=== PATIENT | female | born 1965 | race Caucasian/White ===

== ENCOUNTER 2016-05-17 07:56 | Day surgery (SDC) | payer OTHER ==
[2016-05-17 08:14] VITALS: TEMP 97.8
[2016-05-17] MEDS ORDERED: LACTATED RINGERS 1,000 ML IV ONE ×2 (08:28→09:10)
[2016-05-17] MEDS ORDERED: LIDOCAINE 1% 20 ML VIAL (10MG/ML) FOR IV START INTRADERMA ONE (08:31)
[2016-05-17] MEDS ORDERED: PROPOFOL 10 MG/ML 20 ML VIAL IV ONE (09:10)
[2016-05-17] MEDS ORDERED: fentaNYL (PF) 50 MCG/ML 2 ML AMP ONE (09:10)
[2016-05-17] MEDS ORDERED: LIDOCAINE 1% INJ 10MG/ML (20 ML MDV) ONE (09:10)
[2016-05-17] MEDS ORDERED: MIDAZOLAM 2 MG/2 ML VIAL ONE (09:10)
--- NOTE | 2016-05-17 09:35 | P.GSHP ---
History of Present Illness H&P Date: 05/17/16 Chief Complaint: Epigastric abdominal pain This is a 50-year-old female who presents today for EGD. She's had complaints of epigastric dull pain. She. Has a history of dyspepsia. - Constitutional Constitutional: Reports as per HPI Past Medical History Past Medical History: Fibromyalgia, GERD/Reflux, Liver Disease, Rheumatoid Arthritis (RA) Additional Past Medical History / Comment(s): djd, carpal tunnel, tendonitis, diverticulosis, heptitis C History of Any Multi-Drug Resistant Organisms: None Reported Past Surgical History: Tubal Ligation Past Anesthesia/Blood Transfusion Reactions: No Reported Reaction Past Psychological History: ADD/ADHD, Anxiety, PTSD Additional Psychological History / Comment(s): "very high anxiety", borderline personality disorder Smoking Status: Current every day smoker Past Alcohol Use History: None Reported Additional Past Alcohol Use History / Comment(s): smokes 1PPD, for 20 yrs Past Drug Use History: None Reported - Past Family History Mother Family Medical History: No Reported History Medications and Allergies Home Medications Medication Instructions Recorded Confirmed Type Hydrochlorothiazide 25 mg PO 05/17/16 History OXcarbazepine [Trileptal] 150 mg PO 05/17/16 History Omeprazole [PriLOSEC] 20 mg PO AC-BRKFST 05/17/16 05/17/16 History Potassium Chloride [Klor-Con 10] 10 meq PO 05/17/16 History buPROPion HCL [Wellbutrin SR] 100 mg PO 05/17/16 History Allergies Allergy/AdvReac Type Severity Reaction Status Date / Time No Known Allergies Allergy Verified 05/17/16 08:05 Surgical - Exam Vital Signs Temp Pulse Resp BP Pulse Ox 97.8 F 96 18 137/85 97 05/17/16 08:13 05/17/16 08:13 05/17/16 08:13 05/17/16 08:13 05/17/16 08:13 - General well developed, no distress - Eyes PERRL - ENT normal pinna - Neck no masses - Respiratory normal expansion - Cardiovascular Rhythm: regular - Abdomen Abdomen: soft, non tender Assessment and Plan Plan: Epigastric dull pain. We'll perform EGD.
--- NOTE | 2016-05-17 09:43 | P.OP ---
Date of Procedure: 05/17/16 Preoperative Diagnosis: Epigastric abdominal pain Postoperative Diagnosis: Mild duodenitis Mild gastritis No evidence of hiatal hernia No evidence of esophagitis Procedure(s) Performed: EGD Anesthesia: MAC Surgeon: Soto Zavala Pathology: other (Antrum, esophagus) Condition: stable Disposition: PACU Description of Procedure: The patient's placed on the endoscopy table in the lateral position. She received IV sedation. The gastroscope some placed oropharynx passed in the esophagus and into the stomach. The scope was then placed through the pylorus. The first and second portion of the duodenumAppeared minimally inflamed and a biopsies performed. Scope was then brought back into the antrum and this was mildly inflamed and another biopsy was performed. The scope was retroflexed and remainder of the stomach appeared normal. There was no significant hiatal hernia. The GE junction was at 40 cm. The distal esophagus appeared normal. The proximal esophagus appeared normal. Scope was withdrawn for patient. Due to the patient's symptoms of epigastric abdominal pain she was scheduled for a HIDA scan.
[2016-05-17 09:48] VITALS: RESP 16
[2016-05-17 10:08] VITALS: BP 120/67
[2016-05-17 10:14] VITALS: PULSE 81
--- NOTE | 2016-05-17 13:30 | NM ---
EXAMINATION TYPE: NM hepatobiliary w EF DATE OF EXAM: 05/17/2016 1:23 PM COMPARISON: NONE HISTORY: Pain TECHNIQUE: After the intravenous administration of 5.1 mCi Tc 99m Mebrofenin hepatobiliary scintigrap hy is performed. Immediate images post injection. FINDINGS: There is satisfactory initial accumulation of tracer by the liver. The gallbladder is visualized wit hin 14 minutes. The small bowel activity is noted within 16 minutes. At one hour 8 ounces of oral e nsure plus is given to mimic CCK and gallbladder ejection fraction is calculated at 85 %. IMPRESSION: 1. Mildly elevated gallbladder ejection fraction may reflect hypercontractile state.
== END 2016-05-17 10:14 | disposition home or self-care (01) ==
LOC: ORWHC2ENDO 07:56
PROVIDERS: ATTEND Surgery
DX: K29.80 Duodenitis without bleeding (principal); K29.50 Unspecified chronic gastritis without bleeding; K21.9 Gastro-esophageal reflux disease without esophagitis; M79.7 Fibromyalgia; M06.9 Rheumatoid arthritis, unspecified; F41.9 Anxiety disorder, unspecified; F43.10 Post-traumatic stress disorder, unspecified; F90.9 Attention-deficit hyperactivity disorder, unspecified type; G89.4 Chronic pain syndrome; F17.200 Nicotine dependence, unspecified, uncomplicated; Z79.891 Long term (current) use of opiate analgesic; Z79.899 Other long term (current) drug therapy
CPT/HCPCS: 88305; 88342; 78226; 43239; A9537; J2250; J2001; J3010; J2704; 88341

== ENCOUNTER 2016-06-01 13:58 | Emergency (ER) | payer OTHER ==
[2016-06-01 14:08] VITALS: RESP 18
[2016-06-01] MEDS ORDERED: SODIUM CHLORIDE 0.9% 500 ML IV STA (15:06)
[2016-06-01] MEDS ORDERED: ONDANSETRON 4 MG/2 ML VIAL IVP STA (15:06)
[2016-06-01] MEDS ORDERED: KETOROLAC 30 MG/ML 1 ML VIAL IVP STA (15:06)
[2016-06-01 16:01] VITALS: TEMP 97.6
[2016-06-01 16:03] LABS: Basophils # (A) 0.1 k/uL (0-0.2); Basophils % (A) 1 %; CH 30.8; CHCM 34.3; Eosinophils # (A) 0.4 k/uL (0-0.7); Eosinophils % (A) 5 %; HCT 37.2 % (34.0-46.0); HDW 2.62; HGB 12.5 gm/dL (11.4-16.0); Luc # (Auto) 0.31; Luc % (Auto) 4; Lymphocytes # (A) 2.3 k/uL (1.0-4.8); Lymphocytes % (A) 30 %; MCH 30.5 pg (25.0-35.0); MCHC 33.7 g/dL (31.0-37.0); MCV 90.4 fL (80.0-100.0); Mean Platelet Volume 7.8; Monocytes # (A) 0.5 k/uL (0-1.0); Monocytes % (A) 6 %; Neutrophils % (A) 53 %; RBC 4.11 m/uL (3.80-5.40); RDW 13.6 % (11.5-15.5); WBC 7.5 k/uL (3.8-10.6); WBC (Perox) 7.85
[2016-06-01 16:18] LABS: ALT 18 U/L (9-52); AST 23 U/L (14-36); Alkaline Phosphatase 68 U/L (38-126); Anion Gap 10 mmol/L; Blood Urea Nitrogen 16 mg/dL (7-17); Calcium 9.6 mg/dL (8.4-10.2); Carbon Dioxide 26 mmol/L (22-30); Chloride 107 mmol/L (98-107); Glucose 83 mg/dL (74-99); Non-African American GFR(MDRD) >60 (>60 ml/min/1.73 sqM); Potassium 3.9 mmol/L (3.5-5.1); Sodium 143 mmol/L (137-145); Total Bilirubin 0.5 mg/dL (0.2-1.3); Total Protein 7.3 g/dL (6.3-8.2)
--- NOTE | 2016-06-01 16:25 | ED ---
General Adult HPI - General Chief complaint: Abdominal Pain Stated complaint: abd pain Source: patient Mode of arrival: ambulatory Limitations: no limitations - History of Present Illness Initial comments: 50-year-old female presented for pain control. She states that she is scheduled to have a cholecystectomy with Dr. Zavala this Tuesday but she has not been given any pain control. She states that she is continued to have pain despite being evaluated and found to have a gallbladder requiring surgery. She presents to the ED with her father who was the initial patient. Upon arrival she was eating food and then stated that she started to have worsening pain. While trying to obtain the patient's HPI she continually interrupted stating all she needed was IV pain medications and that all these questions were necessary. As she is being informed that these were important for her workup she stated that she was being treated as though she was lying and that all she needed was pain control. Despite the patient being scheduled for cholecystectomy on Tuesday this behavior is concerning for drug-seeking activity. - Related Data Home Medications Medication Instructions Recorded Confirmed Potassium Chloride [Klor-Con 10] 10 meq PO DAILY 05/17/16 06/01/16 Hydrochlorothiazide [Hydrodiuril] 25 mg PO DAILY 06/01/16 06/01/16 Omeprazole 40 mg PO DAILY 06/01/16 06/01/16 busPIRone HCl [Buspar] 5 mg PO BID 06/01/16 06/01/16 Previous Rx's Medication Instructions Recorded Acetaminophen-Codeine 300-30mg 1 tab PO Q6H PRN #14 tablet 06/01/16 [Tylenol #3] Ondansetron Odt [Zofran Odt] 4 mg PO Q8HR PRN #7 tab 06/01/16 Allergies Allergy/AdvReac Type Severity Reaction Status Date / Time No Known Allergies Allergy Verified 06/01/16 14:33 Review of Systems ROS Statement: Those systems with pertinent positive or pertinent negative responses have been documented in the HPI. ROS Other: All systems not noted in ROS Statement are negative. Constitutional: Denies: fever, chills Eyes: Denies: eye pain, eye discharge ENT: Denies: ear pain, throat pain Respiratory: Denies: cough, dyspnea Cardiovascular: Denies: chest pain, palpitations, dyspnea on exertion, orthopnea Endocrine: Denies: fatigue, polydipsia Gastrointestinal: Reports: abdominal pain, nausea. Denies: vomiting Genitourinary: Denies: urgency, dysuria Musculoskeletal: Denies: back pain, arthralgia, myalgia Skin: Denies: rash, lesions Neurological: Denies: headache, weakness Psychiatric: Denies: anxiety, depression Hematological/Lymphatic: Denies: easy bleeding, easy bruising Past Medical History Past Medical History: Fibromyalgia, GERD/Reflux, Liver Disease, Rheumatoid Arthritis (RA) Additional Past Medical History / Comment(s): djd, carpal tunnel, tendonitis, diverticulosis, heptitis C, History of Any Multi-Drug Resistant Organisms: None Reported Past Surgical History: Tubal Ligation Additional Past Surgical History / Comment(s): colonoscopy and egd, PAIN CLINIC PROCEDURES Past Anesthesia/Blood Transfusion Reactions: No Reported Reaction Past Psychological History: ADD/ADHD, Anxiety, PTSD Additional Psychological History / Comment(s): "very high anxiety", borderline personality disorder Smoking Status: Current every day smoker Past Alcohol Use History: None Reported Additional Past Alcohol Use History / Comment(s): smokes 1PPD, for 20 yrs Past Drug Use History: None Reported - Past Family History Mother Family Medical History: No Reported History General Exam Limitations: no limitations General appearance: alert, in no apparent distress Head exam: Present: atraumatic, normocephalic, normal inspection Eye exam: Present: normal appearance, PERRL, EOMI. Absent: scleral icterus, conjunctival injection, periorbital swelling ENT exam: Present: normal exam, mucous membranes moist Neck exam: Present: normal inspection. Absent: tenderness, meningismus, lymphadenopathy Respiratory exam: Present: normal lung sounds bilaterally. Absent: respiratory distress, wheezes, rales, rhonchi, stridor Cardiovascular Exam: Present: regular rate, normal rhythm, normal heart sounds. Absent: systolic murmur, diastolic murmur, rubs, gallop, clicks GI/Abdominal exam: Present: soft, tenderness, normal bowel sounds, other ( Epigastric abdominal pain that is distractible.). Absent: distended, guarding, rebound, rigid Rectal exam: Present: deferred Extremities exam: Present: normal inspection, full ROM, normal capillary refill. Absent: tenderness, pedal edema, joint swelling, calf tenderness Back exam: Present: normal inspection Neurological exam: Present: alert, oriented X3, CN II-XII intact Psychiatric exam: Present: agitated Skin exam: Present: warm, dry, intact, normal color. Absent: rash Course Vital Signs 06/01/16 06/01/16 06/01/16 14:05 15:57 16:32 Temperature 98.3 F 97.6 F Pulse Rate 98 76 75 Respiratory 18 18 18 Rate Blood Pressure 140/89 153/95 126/66 O2 Sat by Pulse 100 100 100 Oximetry EKG Findings - EKG Comments: EKG Findings:: Normal sinus rhythm with first-degree AV block and a ventricular rate of 76, NIKOLAS 214, QRS 90, QT/QTC 388/436. Medical Decision Making - Medical Decision Making 50-year-old female presenting for pain control. She is scheduled for a cholecystectomy with Dr. Zavala on Tuesday but she states she was never given any prescriptions for her pain management. On physical examination the patient has distractible epigastric abdominal pain and the abdomen is soft without any peritoneal signs of guarding rigidity or rebound. Patient exhibits drug-seeking behavior stating that a physical exam and lab workup is unnecessary as all she needs is pain control. Further questioning and attempts to examine the patient resulted in the patient accusing me of treating her as though she is lying and that she is upset that we won't just give her IV pain medication. She was informed that this was not the case and that an exam and appropriate workup is necessary for any sort of treatment. Toradol and Zofran were ordered for the patient and his labs are coming back she was reevaluated when she stated that if she would not be given any narcotic pain medications she would prefer to be discharged. She was informed that her labs revealed no significant abnormalities and that she could be safely discharged at this time. Dr. Zavala was called and agreed with plan not to provide narcotic pain medications. The patient was advised to follow-up with her primary care physician or surgeon and return to this facility if her symptoms should worsen or persist. She acknowledged an understanding of this information and agreed with this plan of care. She is further given instructions for low-fat diet. - Lab Data Result diagrams: 06/01/16 15:53 06/01/16 15:53 Lab Results 06/01/16 06/01/16 Range/Units 15:53 15:53 WBC 7.5 (3.8-10.6) k/uL RBC 4.11 (3.80-5.40) m/uL Hgb 12.5 (11.4-16.0) gm/dL Hct 37.2 (34.0-46.0) % MCV 90.4 (80.0-100.0) fL MCH 30.5 (25.0-35.0) pg MCHC 33.7 (31.0-37.0) g/dL RDW 13.6 (11.5-15.5) % Plt Count 310 (150-450) k/uL Neutrophils % 53 % Lymphocytes % 30 % Monocytes % 6 % Eosinophils % 5 % Basophils % 1 % Neutrophils # 4.0 (1.3-7.7) k/uL Lymphocytes # 2.3 (1.0-4.8) k/uL Monocytes # 0.5 (0-1.0) k/uL Eosinophils # 0.4 (0-0.7) k/uL Basophils # 0.1 (0-0.2) k/uL Sodium 143 (137-145) mmol/L Potassium 3.9 (3.5-5.1) mmol/L Chloride 107 (98-107) mmol/L Carbon Dioxide 26 (22-30) mmol/L Anion Gap 10 mmol/L BUN 16 (7-17) mg/dL Creatinine 0.90 (0.52-1.04) mg/dL Est GFR (MDRD) Af Amer >60 (>60 ml/min/1.73 sqM) Est GFR (MDRD) Non-Af >60 (>60 ml/min/1.73 sqM) Glucose 83 (74-99) mg/dL Calcium 9.6 (8.4-10.2) mg/dL Total Bilirubin 0.5 (0.2-1.3) mg/dL AST 23 (14-36) U/L ALT 18 (9-52) U/L Alkaline Phosphatase 68 (38-126) U/L Total Protein 7.3 (6.3-8.2) g/dL Albumin 4.2 (3.5-5.0) g/dL Lipase 168 (23-300) U/L Disposition Clinical Impression: Abdominal pain, Nausea Disposition: HOME SELF-CARE Condition: Stable Instructions: Abdominal Pain (ED), Low Fat Diet (ED), Biliary Colic (ED) Additional Instructions: Please use medication as discussed. Please follow up with family doctor if symptoms have not improved over the next two days. Please return to the emergency room if your symptoms increase or worsen or for any other concerns. Prescriptions: Acetaminophen-Codeine 300-30mg [Tylenol #3] 1 tab PO Q6H PRN #14 tablet PRN Reason: Pain Ondansetron Odt [Zofran Odt] 4 mg PO Q8HR PRN #7 tab PRN Reason: Nausea Referrals: Adelia Iqbal DO [Primary Care Provider] - 1-2 days Time of Disposition: 16:25
[2016-06-01 16:32] VITALS: BP 126/66; PULSE 75
[2016-06-01] MEDS ORDERED: RX INFO: IV CONTRAST WAS GIVEN 1 EACH MISC MISCELLANE PRN (16:33)
== END 2016-06-01 16:46 | disposition home or self-care (01) ==
LOC: EC 13:58
DX: R10.13 Epigastric pain (principal); R11.0 Nausea; K21.9 Gastro-esophageal reflux disease without esophagitis; F41.9 Anxiety disorder, unspecified; F90.9 Attention-deficit hyperactivity disorder, unspecified type; F17.200 Nicotine dependence, unspecified, uncomplicated; Z79.899 Other long term (current) drug therapy
CPT/HCPCS: 99284 ×2; 96374 ×2; 36415; 93005; 80053; 83690; 85025; J2405

== ENCOUNTER 2016-06-04 09:04 | Day surgery (SDC) | payer OTHER ==
[2016-06-01 13:35] VITALS: BMI 26.6
--- NOTE | 2016-06-04 08:01 | P.GSHP ---
History of Present Illness H&P Date: 06/04/16 Chief Complaint: Right upper quadrant pain This is a 50-year-old female referred from Dr. Adelia Iqbal. Patient has had complaints of right upper quadrant pain. Her recent HIDA scan shows an elevated ejection fraction 85% consistent with biliary hyperkinesia and chronic cholecystitis. - Constitutional Constitutional: Reports as per HPI Past Medical History Past Medical History: Fibromyalgia, GERD/Reflux, Liver Disease, Rheumatoid Arthritis (RA) Additional Past Medical History / Comment(s): djd, carpal tunnel, tendonitis, diverticulosis, heptitis C, History of Any Multi-Drug Resistant Organisms: None Reported Past Surgical History: Tubal Ligation Additional Past Surgical History / Comment(s): colonoscopy and egd, PAIN CLINIC PROCEDURES Past Anesthesia/Blood Transfusion Reactions: No Reported Reaction Past Psychological History: ADD/ADHD, Anxiety, PTSD Additional Psychological History / Comment(s): "very high anxiety", borderline personality disorder Smoking Status: Current every day smoker Past Alcohol Use History: None Reported Additional Past Alcohol Use History / Comment(s): smokes 1PPD, for 20 yrs Past Drug Use History: None Reported - Past Family History Mother Family Medical History: No Reported History Medications and Allergies Home Medications Medication Instructions Recorded Confirmed Type Potassium Chloride [Klor-Con 10] 10 meq PO DAILY 05/17/16 06/01/16 History Hydrochlorothiazide [Hydrodiuril] 25 mg PO DAILY 06/01/16 06/01/16 History Omeprazole 40 mg PO DAILY 06/01/16 06/01/16 History busPIRone HCl [Buspar] 5 mg PO BID 06/01/16 06/01/16 History Allergies Allergy/AdvReac Type Severity Reaction Status Date / Time No Known Allergies Allergy Verified 06/01/16 14:33 Surgical - Exam - General well developed, no distress - Eyes PERRL - ENT normal pinna - Neck no masses - Respiratory normal expansion - Cardiovascular Rhythm: regular - Abdomen Abdomen: soft, non tender Assessment and Plan Plan: Chronic cholecystitis Right quadrant pain We'll perform laparoscopic cholecystectomy.
[~2016-06-04 09:04] MED LIST: DEXAMETHASONE SOD PHOSPHATE 10 MG/ML 1 ML VIAL IV ONE; HEPARIN SODIUM,PORCINE 5,000 UNIT/ML 1 ML VIAL SQ ONE; LACTATED RINGERS 1,000 ML IV SCH; MIDAZOLAM 2 MG/2 ML VIAL IV PRN; ONDANSETRON 4 MG/2 ML VIAL IVP ONE; SCOPOLAMINE 1.5MG/72HR PATCH TRANSDERM ONE; ceFAZolin 2 GM in SODIUM CHLORIDE 0.9% 100 ML IVPB ONE
[2016-06-04] MEDS ORDERED: LIDOCAINE 1% 20 ML VIAL (10MG/ML) FOR IV START INTRADERMA ONE (09:42)
[2016-06-04] MEDS ORDERED: ROCURONIUM BROMIDE 10 MG/ML 10 ML VIAL IV ONE (10:24)
[2016-06-04] MEDS ORDERED: fentaNYL (PF) 50 MCG/ML 2 ML AMP ONE (10:24)
[2016-06-04] MEDS ORDERED: LIDOCAINE 1% INJ 10MG/ML (20 ML MDV) ONE (10:24)
[2016-06-04] MEDS ORDERED: GLYCOPYRROLATE 0.2 MG/ML 2 ML VIAL ONE (10:24)
[2016-06-04] MEDS ORDERED: PROPOFOL 10 MG/ML 20 ML VIAL IV ONE (10:24)
[2016-06-04] MEDS ORDERED: NEOSTIGMINE 1 MG/ML 10 ML VIAL ONE (10:24)
[2016-06-04] MEDS ORDERED: MIDAZOLAM 2 MG/2 ML VIAL ONE (10:24)
[2016-06-04] MEDS ORDERED: SUCCINYLCHOLINE CHLORIDE 100 MG/5 ML SYR IV ONE (10:24)
[2016-06-04] MEDS ORDERED: BUPIVACAIN-EPI 0.25%-1:200,000 30 ML VIAL SQ ONE (10:48)
--- NOTE | 2016-06-04 11:10 | P.OP ---
Date of Procedure: 06/04/16 Preoperative Diagnosis: Cholecystitis Postoperative Diagnosis: Cholecystitis Procedure(s) Performed: Laparoscopic cholecystectomy Anesthesia: RYAN Surgeon: Soto Zavala Estimated Blood Loss (ml): 5 Pathology: other (Gallbladder) Condition: stable Disposition: PACU Description of Procedure: The patient was placed on the operating table. The patient received a general endotracheal tube anesthesia. The patients abdomen was prepped and draped in the usual sterile fashion. Through an infraumbilical stab incision, the fascia of the anterior abdominal wall was grasped with a pair of Kochers and then the Veress needle was placed in the peritoneal cavity. Position of the Veress needle was confirmed with positive drop test. The abdomen was then insufflated. After adequate insufflation, the 10 mm trocar was placed in the peritoneal cavity. Following this the laparoscope was placed in the peritoneal cavity. The patient was placed in the head-up, right side up position and then a 5 mm trocar was placed in the right lateral and right subcostal position under direct visualization. A 8 mm trocar was placed in the epigastric position. The gallbladder was grasped in the fundus and infundibulum. Traction on the gallbladder was placed in the lateral and the cephalad positions. The triangle of Calot was visualized.. The cystic duct was bluntly dissected until the union of the cystic duct and common bile duct was seen. The cystic duct was then divided and sealed with the Harmonic scissors. A PDS Endoloop was then placed throughout the cystic duct stump. The cystic artery divided and sealed with the Harmonic scissors. The gallbladder was then removed from the liver bed using Harmonic scissors. The gallbladder was then extracted through the epigastric port site. Operative field was checked for any bleeding spots and Harmonic scissors was used to coagulate the liver bed. The abdomen was irrigated. The trocars were removed. The skin was closed using interrupted 3-0 Vicryl suture. Dermabond dressing were applied. The patient tolerated the procedure well.
[2016-06-04 11:23] VITALS: TEMP 97.8
[2016-06-04] MEDS: HYDROmorphone 1 MG/ML 1 ML SYRINGE IVP PRN ×3 (11:26→11:48)
[2016-06-04 11:32] VITALS: RESP 16
[2016-06-04] MEDS ORDERED: LACTATED RINGERS 1,000 ML IV ONE (12:12)
[2016-06-04] MEDS ORDERED: HYDROcodone/APAP 7.5-325MG 1 EACH TAB PO ONE (12:29)
[2016-06-04 13:14] VITALS: BP 122/81; PULSE 77
== END 2016-06-04 13:15 | disposition home or self-care (01) ==
LOC: ORWHC2ENDO 09:04
PROVIDERS: ATTEND Surgery
DX: K81.1 Chronic cholecystitis (principal); K21.9 Gastro-esophageal reflux disease without esophagitis; K74.60 Unspecified cirrhosis of liver; F41.9 Anxiety disorder, unspecified; F60.3 Borderline personality disorder; F90.9 Attention-deficit hyperactivity disorder, unspecified type; F43.10 Post-traumatic stress disorder, unspecified; M79.7 Fibromyalgia; M06.9 Rheumatoid arthritis, unspecified; F17.200 Nicotine dependence, unspecified, uncomplicated; Z79.891 Long term (current) use of opiate analgesic; Z79.899 Other long term (current) drug therapy
CPT/HCPCS: 88304; 47562; J2250; J1644; J1100; J2710; J0690; J2405; J2001; J3010; J1170; J0330; J2704

== ENCOUNTER → 2016-07-16 | Outpatient (CLI) | payer OTHER ==
[2016-07-16 16:03] LABS: Basophils % (A) 0 %; CH 30.4; CHCM 33.4; Eosinophils # (A) 0.2 k/uL (0-0.7); Eosinophils % (A) 4 %; HDW 2.58; HGB 13.1 gm/dL (11.4-16.0); Luc # (Auto) 0.18; Luc % (Auto) 3; Lymphocytes % (A) 31 %; MCH 29.9 pg (25.0-35.0); MCHC 32.8 g/dL (31.0-37.0); MCV 91.2 fL (80.0-100.0); Mean Platelet Volume 6.8; Monocytes # (A) 0.4 k/uL (0-1.0); Monocytes % (A) 6 %; Neutrophils # (A) 3.7 k/uL (1.3-7.7); Neutrophils % (A) 57 %; RBC 4.38 m/uL (3.80-5.40); RDW 13.6 % (11.5-15.5); WBC 6.5 k/uL (3.8-10.6)
[2016-07-16 16:07] LABS: ALT 25 U/L (9-52); AST 26 U/L (14-36); Alkaline Phosphatase 64 U/L (38-126); Bilirubin, Delta 0.2 mg/dL (0.0-0.2); Total Bilirubin 0.3 mg/dL (0.2-1.3); Total Protein 7.2 g/dL (6.3-8.2)
[2016-07-16 16:36] LABS: Hepatitis B Surface Ag Index 0.07
[2016-07-19 08:25] LABS: HCV Qualitative Result Not detected (Not detected)
== END | disposition home or self-care (01) ==
LOC: LABWHC1 15:16
DX: B18.2 Chronic viral hepatitis C (principal)
CPT/HCPCS: 36415; 80076; 85025; 85027; 86704; 87340; 87522

== ENCOUNTER → 2016-09-13 | Outpatient (CLI) | payer OTHER ==
--- NOTE | 2016-09-13 10:51 | FL ---
EXAMINATION TYPE: FL UGI air w KUB DATE OF EXAM: 09/13/2016 COMPARISON: NONE HISTORY: Epigastric pain with nausea and vomiting for 1.5 years not relieved after cholecystectomy or with antireflux medication. TECHNIQUE: A double contrast UGI study is performed. Patient refused small bowel follow through whic h was in the original order. A total of 47 seconds of fluoroscopic time was utilized during procedure . FINDINGS: Customer Service Dispatcher image of the abdomen shows no gross abnormality. Overall nonobstructive bowel gas pa ttern The esophagus shows normal motility and emptying into the stomach. No evidence of hiatal hernia or s tricture noted. The stomach shows normal distensibility, peristalsis, and mucosal folds. No evidence of any mass or ulcer disease. Occasional episodes of gastroesophageal reflux are identified during real time perform ance of this study. The duodenal bulb, sweep, and proximal small bowel loops are unremarkable. IMPRESSION: Episodic gastroesophageal reflux otherwise unremarkable study.
== END | disposition home or self-care (01) ==
LOC: RADFLMAIN 07:43
PROVIDERS: ATTEND Family Medicine
DX: K21.9 Gastro-esophageal reflux disease without esophagitis (principal)
CPT/HCPCS: 74247

== ENCOUNTER → 2017-07-05 | Outpatient (CLI) | payer OTHER ==
[2017-07-05 14:10] VITALS: BP 95/57; PULSE 94; RESP 20
--- NOTE | 2017-07-05 19:57 | P.PAINPG ---
Subjective Progress Note Date: 07/05/17 This is 51 years old female, with a chronic history of low back pain and neck pain, she was seen previously in our pain clinic, last visit was 2 years ago, currently patient taking pain medication from her primary care, Neurontin and [place], she reported the current pain medication helping to control her pain, but the pain intensity in the cervical area increased over the last several weeks, the pain is constant and increased with any activity, associated with numbness and tingling sensation, she denies any fever or night sweats she denies any change in the bowel movements or urination, even though she feels her upper extremity slightly weaker than average, several years ago within radiofrequency ablation of the medial branch lumbar area and she got good pain relief Objective - Vital Signs Vital signs: Vital Signs Temp Pulse 94 07/05/17 13:58 Resp 20 07/05/17 13:58 BP 95/57 07/05/17 13:58 Pulse Ox 99 07/05/17 13:58 Intake & Output 07/05/17 07/05/17 07/06/17 06:59 18:59 06:59 Weight 77.111 kg - Exam Physical Examinations : 1-Constitutiona : Cooperative , not in acute distress . 2-HEENT : nech ; supple , no Lymphadenopathy , normal thyroid size . eyes : no ptosis , no icterus, no photophobia . ENT : normal of hearing , normal oropharynx , no Thrush . 3- Respiratory : Chest clear to auscultations Bilaterally , no wheezing , no Rhonchi . 4- Cardiovascular : regular rate and rhythem , S1 , S2 , no S3 , no S4. 5- Gastrointestinal : abdomen soft no tenderness , bowel sounds positive all four quadrents , no organomegally . 6- Genitourinary : Defferred . 7- neurologic : Cranial nerve II to XII intact , no focal neurological deffecit . 8-psychatric : alert , oriented X 3 , appropriate affect , intact judgment and insight . 9-Lymphatic : no Lymphadenopathy . 10- musculoskeltal : cervical spine = motor stregnth in the deltoid and biceps, motor stregnth biceps and the wrist extensors (C6) . motor stregnth in the triceps muscle . deep tendon reflexes normal at the biceps , normal at Brachioradialis , normal at the Triceps positive cervical facet loading test . , Lumber spine = normal moter stegnth lower extremities ,thigh and legs .5/5 Assessment and Plan Plan: Assessment and plan=1-cervical radiculopathic 2-cervical spondylosis with cervical facet arthropathy. Patient could benefit from cervical epidural steroid injections which will be done under fluoroscopy guidance at the earliest convenient for the patient, Patient currently getting prescription of [place]/Neurontin from her primary she denies any side effects of the medication, and she reports a current pain medication helping to control her pain , PQRS Measure Charge Sheet Measure #130: Documentation of Current Meds in Medical Chart: Patient's medications documented in chart Measure #226: Tobacco Use: Screen & Cessation Intervention: Pt screened for tobacco use AND intervention given Measure #111: Pneumonia Vaccination: Pneumococcal vaccine administered or previously received Measure #47: Advance Care Plan: Advance care planning discussed & documented, plan or surrogate given Measure #412: Opioid Treatment Agreement: No documentation of signed opioid treatment agreement Measure #408: Opioid Therapy Follow-up Evaluation: Patient had NO f/u eval minimum every 3 months during opioid therapy Measure #317: Preventitive Care & Scrn High Bld Press & F/U: Normal blood pressure, f/u not required Measure #128: Body Mass Index (BMI) Screening & Follow-up: BMI documented ABOVE normal parameters - f/u documented Measure #131: Pain Assessment & Follow-up: Pain positive & plan documented, Follow-up scheduled Measure #431: Unhealthy Alcohol Use Preventative Care & Scrn: Patient not identified as an unhealthy alcohol user PQRS Narrative: Smoking Status Current every day smoker Do You Want the Pneumonia Vaccine Up to Date Vaccine AT THIS TIME? Blood Pressure 95/57 Pain Intensity [Generalized] 10 Scale Used Numeric (1 - 10) Home Medications: Ambulatory Orders Potassium Chloride [Klor-Con 10] 10 meq PO DAILY 05/17/16 Ondansetron Odt [Zofran Odt] 4 mg PO Q8HR PRN #7 tab 06/01/16 Gabapentin [Neurontin] 1 tab PO TID 07/05/17 HYDROcodone/APAP 10-325MG [[place] 10-325] 1 tab PO TID 07/05/17 Controlled Substance Measures - Controlled Substance Measures Is patient prescribed a controlled substance at discharge?: No If prescribed controlled substance>3 days was MAPS reviewed?: No When asked, does pt state using other controlled substances?: No
== END | disposition home or self-care (01) ==
LOC: PNWHC3 13:21
PROVIDERS: ATTEND Specialist
DX: G89.29 Other chronic pain (principal); M54.2 Cervicalgia; M47.22 Other spondylosis with radiculopathy, cervical region; M46.82 Other specified inflammatory spondylopathies, cervical region; F17.200 Nicotine dependence, unspecified, uncomplicated; Z79.891 Long term (current) use of opiate analgesic; Z79.52 Long term (current) use of systemic steroids
CPT/HCPCS: 99211

== ENCOUNTER → 2017-12-15 | Outpatient (CLI) | payer OTHER ==
--- NOTE | 2017-12-15 10:50 | MR ---
EXAMINATION TYPE: MR lumbar spine wo con DATE OF EXAM: 12/15/2017 COMPARISON: None HISTORY: Low back pain CONTRAST: 0 mL intravenous Gadavist. TECHNIQUE: Multiplanar, multisequence images of the lumbar spine were acquired. FINDINGS: L5-S1: Central disc bulge has mild anterior thecal sac contact. No spinal canal stenosis or neural fo raminal stenosis is present. Mild facet degenerative changes present. L4-L5: Mild disc bulging is anterior thecal sac contact. No spinal canal stenosis or neural foraminal stenosis is present. L3-L4: Minimal disc bulge has anterior thecal sac contact. No spinal canal stenosis or neural foramin al stenosis is present. L2-L3: No significant disc bulge or disc herniation. No spinal canal stenosis. No foraminal stenosi s. L1-L2: No significant disc bulge or disc herniation. No spinal canal stenosis. No foraminal stenosi s. T12-L1: No significant disc bulge or disc herniation. No spinal canal stenosis. No foraminal stenos is. Cord terminates at the T12 level. IMPRESSION: 1. Mild disc bulging L3-4 through L5-S1 with anterior thecal sac contact. No stenosis is present. No focal disc herniations are evident.
== END ==
LOC: RADMRIMAIN 08:21
PROVIDERS: ATTEND Family Medicine
DX: M51.27 Other intervertebral disc displacement, lumbosacral region (principal)
CPT/HCPCS: 72148

== ENCOUNTER 2017-12-21 18:37 | Emergency (ER) | payer OTHER ==
[2017-12-21 18:53] VITALS: BP 117/82; PULSE 62; RESP 18; TEMP 97.9
[2017-12-21] MEDS ORDERED: NITROGLYCERIN OINT 1 INCH/GM PACKET TOPICAL STA (19:11)
[2017-12-21] MEDS ORDERED: ASPIRIN 81 MG PO STA (19:11)
--- NOTE | 2017-12-21 19:14 | ED ---
General Adult HPI - General Chief complaint: Chest Pain Stated complaint: chest pain Time Seen by Provider: 12/21/17 18:50 Source: patient, RN notes reviewed Mode of arrival: EMS Limitations: no limitations - History of Present Illness Initial comments: This is a 52-year-old female presents emergency Department with a past medical history significant for smoking hypertension. Patient states today she had 2 episodes of chest pain which were in the center of her chest did not radiate anywhere. Patient states the chest pain was associated with significant difficulty breathing. Patient states both lasted about 5 minutes and then resolved. Patient states currently she is chest pain-free and she is no longer short of breath. Patient denies any diaphoretic episodes. Patient denies any nausea vomiting diarrhea. Patient denies any recent fever chills or cough. Patient denies any lightheadedness dizziness or near syncopal episode. Patient denies any leg swelling or calf tenderness. - Related Data Home Medications Medication Instructions Recorded Confirmed HYDROcodone/APAP 10-325MG [[place] 1 tab PO QID PRN 07/05/17 12/21/17 10-325] Albuterol Inhaler [Ventolin Hfa 1 - 2 puff INHALATION RT-Q6H PRN 09/01/17 Inhaler] Albuterol Nebulized [Ventolin 2.5 mg INHALATION RT-Q4H PRN 09/01/17 12/21/17 Nebulized] Baclofen [Lioresal] 20 mg PO BID 09/01/17 12/21/17 Beclomethasone Dipropionate [Qvar 2 puff INHALATION RT-BID 09/01/17 12/21/17 80 mcg] Ergocalciferol (Vitamin D2) 50,000 unit PO Q7D 09/01/17 12/21/17 [Vitamin D2] Omeprazole [PriLOSEC] 40 mg PO DAILY 09/01/17 12/21/17 Gabapentin 800 mg PO QID 12/21/17 12/21/17 Meloxicam [Mobic] 7.5 mg PO DAILY PRN 12/21/17 12/21/17 Ondansetron [Zofran ODT] 8 mg PO TID PRN 12/21/17 12/21/17 PARoxetine HCL [Paxil] 30 mg PO BID 12/21/17 12/21/17 Topiramate [Topamax] 100 mg PO DAILY 12/21/17 12/21/17 Allergies Allergy/AdvReac Type Severity Reaction Status Date / Time No Known Allergies Allergy Verified 12/21/17 19:25 Review of Systems ROS Statement: Those systems with pertinent positive or pertinent negative responses have been documented in the HPI. ROS Other: All systems not noted in ROS Statement are negative. Past Medical History Past Medical History: Asthma, Fibromyalgia, GERD/Reflux, Liver Disease, Rheumatoid Arthritis (RA) Additional Past Medical History / Comment(s): djd, carpal tunnel, tendonitis, diverticulosis, heptitis C, herniated disc History of Any Multi-Drug Resistant Organisms: None Reported Past Surgical History: Tubal Ligation Additional Past Surgical History / Comment(s): colonoscopy and egd, PAIN CLINIC PROCEDURES Past Anesthesia/Blood Transfusion Reactions: No Reported Reaction Past Psychological History: ADD/ADHD, Anxiety, PTSD Smoking Status: Current every day smoker - Past Family History Mother Family Medical History: No Reported History General Exam - General Exam Comments Initial Comments: GENERAL: Patient is well-developed and well-nourished. Patient is nontoxic and well- hydrated and is in mild distress. ENT: Neck is soft and supple. No significant lymphadenopathy is noted. Oropharynx is clear. Moist mucous membranes. Neck has full range of motion without eliciting any pain. EYES: The sclera were anicteric and conjunctiva were pink and moist. Extraocular movements were intact and pupils were equal round and reactive to light. Eyelids were unremarkable. PULMONARY: Unlabored respirations. Good breath sounds bilaterally. No audible rales rhonchi or wheezing was noted. CARDIOVASCULAR: There is a regular rate and rhythm without any murmurs gallops or rubs. ABDOMEN: Soft and nontender with normal bowel sounds. No palpable organomegaly was noted. There is no palpable pulsatile mass. SKIN: Skin is clear with no lesions or rashes and otherwise unremarkable. NEUROLOGIC: Patient is alert and oriented x3. Cranial nerves II through XII are grossly intact. Motor and sensory are also intact. Normal speech, volume and content. Symmetrical smile. MUSCULOSKELETAL: Normal extremities with adequate strength and full range of motion. No lower extremity swelling or edema. No calf tenderness. LYMPHATICS: No significant lymphadenopathy is noted PSYCHIATRIC: Normal psychiatric evaluation. Limitations: no limitations Course Vital Signs 12/21/17 18:52 Temperature 97.9 F Pulse Rate 62 Respiratory 18 Rate Blood Pressure 117/82 O2 Sat by Pulse 97 Oximetry Medical Decision Making - Medical Decision Making EKG shows normal sinus rhythm at [address] interval is 196 QRS is 96 Q-T intervals 42 QTC is 446 per patient's EKG shows no ST segment elevation or depression or T wave abnormalities are noted. Disposition Clinical Impression: Chest pain Disposition: Left Against Medical Advice Referrals: Sammi Herrera MD [Primary Care Provider] - 1-2 days
== END 2017-12-21 19:26 | disposition left against medical advice (07) ==
LOC: EC 18:37
DX: R07.9 Chest pain, unspecified (principal); R06.00 Dyspnea, unspecified; J45.909 Unspecified asthma, uncomplicated; K21.9 Gastro-esophageal reflux disease without esophagitis; M06.9 Rheumatoid arthritis, unspecified; F41.9 Anxiety disorder, unspecified; F43.10 Post-traumatic stress disorder, unspecified; M79.7 Fibromyalgia; F17.200 Nicotine dependence, unspecified, uncomplicated; Z79.1 Long term (current) use of non-steroidal anti-inflammatories (NSAID); Z79.899 Other long term (current) drug therapy
CPT/HCPCS: 93005; 99284

== ENCOUNTER 2018-02-05 07:27 | Emergency (ER) | payer OTHER ==
[2018-02-05] MEDS ORDERED: LORazepam 2 MG/ML INJ IV STA ×2 (07:46→08:23)
[2018-02-05] MEDS ORDERED: hydrALAZINE HCL 20 MG/ML 1 ML VIAL IVP STA (07:46)
--- NOTE | 2018-02-05 07:52 | ED ---
General Adult HPI - General Chief complaint: Recheck/Abnormal Lab/Rx Stated complaint: High BP Time Seen by Provider: 02/05/18 07:27 Source: patient, RN notes reviewed Mode of arrival: wheelchair Limitations: no limitations - History of Present Illness Initial comments: This is a 52-year-old female presents emergency Department complaining of being very anxious and shaky. Patient states she also took her blood pressure was very high. Patient states she took her blood pressure medicines prior to coming to the emergency department but did not take any antianxiety medications. Patient states she has no pain she denies any chest pain she denies being short of breath or having any difficult breathing she states she just feels extremely shaky and she believes is because of her blood pressure. Patient denies headache to me and denies any blurred vision. Patient denies any focal numbness or weakness. Patient denies any back pain patient denies any nausea vomiting or abdominal pain. Patient denies any leg swelling or calf tenderness. Patient denies any recent injury or trauma. Patient denies any illegal drug use but after I left the room she told the nurse that she did methamphetamine this morning. Patient states she is a smoker. - Related Data Home Medications Medication Instructions Recorded Confirmed HYDROcodone/APAP 10-325MG [[place] 1 tab PO QID PRN 07/05/17 12/21/17 10-325] Albuterol Inhaler [Ventolin Hfa 1 - 2 puff INHALATION RT-Q6H PRN 09/01/17 Inhaler] Albuterol Nebulized [Ventolin 2.5 mg INHALATION RT-Q4H PRN 09/01/17 12/21/17 Nebulized] Baclofen [Lioresal] 20 mg PO BID 09/01/17 12/21/17 Beclomethasone Dipropionate [Qvar 2 puff INHALATION RT-BID 09/01/17 12/21/17 80 mcg] Ergocalciferol (Vitamin D2) 50,000 unit PO Q7D 09/01/17 12/21/17 [Vitamin D2] Omeprazole [PriLOSEC] 40 mg PO DAILY 09/01/17 12/21/17 Gabapentin 800 mg PO QID 12/21/17 12/21/17 Meloxicam [Mobic] 7.5 mg PO DAILY PRN 12/21/17 12/21/17 Ondansetron [Zofran ODT] 8 mg PO TID PRN 12/21/17 12/21/17 PARoxetine HCL [Paxil] 30 mg PO BID 12/21/17 12/21/17 Topiramate [Topamax] 100 mg PO DAILY 12/21/17 12/21/17 Allergies Allergy/AdvReac Type Severity Reaction Status Date / Time No Known Allergies Allergy Verified 02/05/18 07:33 Review of Systems ROS Statement: Those systems with pertinent positive or pertinent negative responses have been documented in the HPI. ROS Other: All systems not noted in ROS Statement are negative. Past Medical History Past Medical History: Asthma, Fibromyalgia, GERD/Reflux, Liver Disease, Rheumatoid Arthritis (RA) Additional Past Medical History / Comment(s): djd, carpal tunnel, tendonitis, diverticulosis, heptitis C, herniated disc History of Any Multi-Drug Resistant Organisms: None Reported Past Surgical History: Tubal Ligation Additional Past Surgical History / Comment(s): colonoscopy and egd, PAIN CLINIC PROCEDURES Past Anesthesia/Blood Transfusion Reactions: No Reported Reaction Past Psychological History: ADD/ADHD, Anxiety, PTSD Smoking Status: Current every day smoker Past Alcohol Use History: None Reported Past Drug Use History: None Reported - Past Family History Mother Family Medical History: No Reported History General Exam - General Exam Comments Initial Comments: GENERAL: Patient is well-developed and well-nourished. Patient is nontoxic and well- hydrated and is in mild distress. ENT: Neck is soft and supple. No significant lymphadenopathy is noted. Oropharynx is clear. Moist mucous membranes. Neck has full range of motion without eliciting any pain. EYES: The sclera were anicteric and conjunctiva were pink and moist. Extraocular movements were intact and pupils were equal round and reactive to light. Eyelids were unremarkable. PULMONARY: Unlabored respirations. Good breath sounds bilaterally. No audible rales rhonchi or wheezing was noted. CARDIOVASCULAR: There is a regular rate and rhythm without any murmurs gallops or rubs. ABDOMEN: Soft and nontender with normal bowel sounds. No palpable organomegaly was noted. There is no palpable pulsatile mass. SKIN: Skin is clear with no lesions or rashes and otherwise unremarkable. NEUROLOGIC: Patient is alert and oriented x3. Cranial nerves II through XII are grossly intact. Motor and sensory are also intact. Normal speech, volume and content. Symmetrical smile. MUSCULOSKELETAL: Normal extremities with adequate strength and full range of motion. No lower extremity swelling or edema. No calf tenderness. LYMPHATICS: No significant lymphadenopathy is noted PSYCHIATRIC: Normal psychiatric evaluation. Limitations: no limitations Course Vital Signs 02/05/18 02/05/18 02/05/18 07:30 08:00 08:30 Temperature 98.1 F Pulse Rate 108 H 105 H Respiratory 18 16 Rate Blood Pressure 172/109 157/95 142/97 O2 Sat by Pulse 95 Oximetry 02/05/18 02/05/18 02/05/18 08:40 09:00 09:43 Temperature 98.2 F Pulse Rate 98 99 100 Respiratory 20 16 20 Rate Blood Pressure 146/94 146/94 148/86 O2 Sat by Pulse 100 97 100 Oximetry Medical Decision Making - Medical Decision Making EKG shows normal sinus rhythm at 97 bpm UT interval 296 QRS is 106 QT interval 384 QTC is 487. Patient's EKG shows no ST segment elevation or depression or T wave abnormalities are noted. Chest x-ray shows no acute abnormality. I went back in to discuss all the results with the patient and she stated she feels much better. Patient agreed that she has to stop doing methamphetamines and that is probably the cause of all of her symptoms. Patient apologizes for lying to me in stating she was not doing any drugs I first asked her. - Lab Data Result diagrams: 02/05/18 08:16 02/05/18 08:16 Lab Results 02/05/18 02/05/18 02/05/18 Range/Units 08:16 08:16 08:16 WBC 9.1 (3.8-10.6) k/uL RBC 4.69 (3.80-5.40) m/uL Hgb 14.5 (11.4-16.0) gm/dL Hct 42.4 (34.0-46.0) % MCV 90.4 (80.0-100.0) fL MCH 30.8 (25.0-35.0) pg MCHC 34.1 (31.0-37.0) g/dL RDW 12.8 (11.5-15.5) % Plt Count 291 (150-450) k/uL Neutrophils % 84 % Lymphocytes % 10 % Monocytes % 4 % Eosinophils % 1 % Basophils % 0 % Neutrophils # 7.6 (1.3-7.7) k/uL Lymphocytes # 0.9 L (1.0-4.8) k/uL Monocytes # 0.4 (0-1.0) k/uL Eosinophils # 0.1 (0-0.7) k/uL Basophils # 0.0 (0-0.2) k/uL PT (9.0-12.0) sec INR (<1.2) APTT (22.0-30.0) sec Sodium 143 (137-145) mmol/L Potassium 4.3 (3.5-5.1) mmol/L Chloride 106 (98-107) mmol/L Carbon Dioxide 25 (22-30) mmol/L Anion Gap 12 mmol/L BUN 11 (7-17) mg/dL Creatinine 0.74 (0.52-1.04) mg/dL Est GFR (CKD-EPI)AfAm >90 (>60 ml/min/1.73 sqM) Est GFR (CKD-EPI)NonAf >90 (>60 ml/min/1.73 sqM) Glucose 112 H (74-99) mg/dL Calcium 9.9 (8.4-10.2) mg/dL Magnesium 1.8 (1.6-2.3) mg/dL Total Bilirubin 0.3 (0.2-1.3) mg/dL AST 31 (14-36) U/L ALT 24 (9-52) U/L Alkaline Phosphatase 65 (38-126) U/L Total Creatine Kinase 76 (30-135) U/L CK-MB (CK-2) 1.1 (0.0-2.4) ng/mL CK-MB (CK-2) Rel Index 1.4 Troponin I <0.012 (0.000-0.034) ng/mL Total Protein 7.2 (6.3-8.2) g/dL Albumin 4.2 (3.5-5.0) g/dL 02/05/18 Range/Units 08:16 WBC (3.8-10.6) k/uL RBC (3.80-5.40) m/uL Hgb (11.4-16.0) gm/dL Hct (34.0-46.0) % MCV (80.0-100.0) fL MCH (25.0-35.0) pg MCHC (31.0-37.0) g/dL RDW (11.5-15.5) % Plt Count (150-450) k/uL Neutrophils % % Lymphocytes % % Monocytes % % Eosinophils % % Basophils % % Neutrophils # (1.3-7.7) k/uL Lymphocytes # (1.0-4.8) k/uL Monocytes # (0-1.0) k/uL Eosinophils # (0-0.7) k/uL Basophils # (0-0.2) k/uL PT 9.7 (9.0-12.0) sec INR 1.0 (<1.2) APTT 25.4 (22.0-30.0) sec Sodium (137-145) mmol/L Potassium (3.5-5.1) mmol/L Chloride (98-107) mmol/L Carbon Dioxide (22-30) mmol/L Anion Gap mmol/L BUN (7-17) mg/dL Creatinine (0.52-1.04) mg/dL Est GFR (CKD-EPI)AfAm (>60 ml/min/1.73 sqM) Est GFR (CKD-EPI)NonAf (>60 ml/min/1.73 sqM) Glucose (74-99) mg/dL Calcium (8.4-10.2) mg/dL Magnesium (1.6-2.3) mg/dL Total Bilirubin (0.2-1.3) mg/dL AST (14-36) U/L ALT (9-52) U/L Alkaline Phosphatase (38-126) U/L Total Creatine Kinase (30-135) U/L CK-MB (CK-2) (0.0-2.4) ng/mL CK-MB (CK-2) Rel Index Troponin I (0.000-0.034) ng/mL Total Protein (6.3-8.2) g/dL Albumin (3.5-5.0) g/dL Disposition Clinical Impression: Methamphetamine abuse Disposition: HOME SELF-CARE Condition: Good Instructions: Methamphetamine Abuse (ED) Is patient prescribed a controlled substance at d/c from ED?: No Referrals: Adelia Iqbal DO [Primary Care Provider] - 1-2 days Time of Disposition: 09:56
[2018-02-05 08:32] LABS: Basophils % (A) 0 %; Eosinophils # (A) 0.1 k/uL (0-0.7); Eosinophils % (A) 1 %; HCT 42.4 % (34.0-46.0); HGB 14.5 gm/dL (11.4-16.0); Lymphocytes # (A) 0.9 k/uL (1.0-4.8); Lymphocytes % (A) 10 %; MCH 30.8 pg (25.0-35.0); MCHC 34.1 g/dL (31.0-37.0); MCV 90.4 fL (80.0-100.0); Mean Platelet Volume 6.8; Monocytes # (A) 0.4 k/uL (0-1.0); Monocytes % (A) 4 %; Neutrophils # (A) 7.6 k/uL (1.3-7.7); Neutrophils % (A) 84 %; Platelet Count 291 k/uL (150-450); RBC 4.69 m/uL (3.80-5.40); RDW 12.8 % (11.5-15.5); WBC 9.1 k/uL (3.8-10.6)
[2018-02-05 08:43] LABS: ALT 24 U/L (9-52); AST 31 U/L (14-36); Albumin 4.2 g/dL (3.5-5.0); Alkaline Phosphatase 65 U/L (38-126); Anion Gap 12 mmol/L; Blood Urea Nitrogen 11 mg/dL (7-17); Calcium 9.9 mg/dL (8.4-10.2); Carbon Dioxide 25 mmol/L (22-30); Chloride 106 mmol/L (98-107); Glucose 112 mg/dL (74-99); Magnesium 1.8 mg/dL (1.6-2.3); Partial Thromboplastin Time 25.4 sec (22.0-30.0); Potassium 4.3 mmol/L (3.5-5.1); Prothrombin Time 9.7 sec (9.0-12.0); Sodium 143 mmol/L (137-145); Total Bilirubin 0.3 mg/dL (0.2-1.3); Total Protein 7.2 g/dL (6.3-8.2)
[2018-02-05 08:54] LABS: Creatine Kinase 76 U/L (30-135)
[2018-02-05 09:08] LABS: Creatine Kinase MB 1.1 ng/mL (0.0-2.4); Troponin I <0.012 ng/mL (0.000-0.034)
--- NOTE | 2018-02-05 09:12 | XR ---
EXAMINATION TYPE: XR chest 2V DATE OF EXAM: 02/05/2018 COMPARISON: NONE HISTORY: Shortness of breath TECHNIQUE: Frontal and lateral views of the chest are obtained. FINDINGS: Scattered senescent parenchymal changes noted. No evidence for infiltrate. No evidence for atelectasis. Heart size is stable. Mediastinal structures are stable and grossly unremarkable. No evidence for hilar prominence. Degenerative changes dorsal spine. IMPRESSION: 1. No evidence for acute pulmonary disease.
[2018-02-05 09:46] VITALS: BP 148/86; PULSE 100; RESP 20; TEMP 98.2
== END 2018-02-05 10:00 | disposition home or self-care (01) ==
LOC: EC 07:27
DX: F15.10 Other stimulant abuse, uncomplicated (principal); F41.9 Anxiety disorder, unspecified; J45.909 Unspecified asthma, uncomplicated; M79.7 Fibromyalgia; K21.9 Gastro-esophageal reflux disease without esophagitis; M06.9 Rheumatoid arthritis, unspecified; Z86.19 Personal history of other infectious and parasitic diseases; F43.10 Post-traumatic stress disorder, unspecified; F90.9 Attention-deficit hyperactivity disorder, unspecified type; F17.200 Nicotine dependence, unspecified, uncomplicated; Z79.51 Long term (current) use of inhaled steroids; Z79.899 Other long term (current) drug therapy; Z53.8 Procedure and treatment not carried out for other reasons
CPT/HCPCS: 36415; 93005; 80053; 82550; 82553; 83735; 84484; 85025; 85610; 85730; 71046; 99284; 96374; J2060

== ENCOUNTER 2021-01-08 08:06 | Day surgery (SDC) | payer OTHER ==
[2021-01-05 15:21] VITALS: BMI 28.1
[~2021-01-08 08:06] MED LIST changes: +ALPRAZolam 0.25 MG TAB PO PRN; +ALPRAZolam 0.5 MG TAB PO PRN; +ASPIRIN 325 MG TAB PO STA; -DEXAMETHASONE SOD PHOSPHATE 10 MG/ML 1 ML VIAL IV ONE; +HEPARIN SODIUM,PORCINE 10,000 UNIT in SODIUM CHLORIDE 0.9% 1,000 ML IRRIGATION PRN; +HEPARIN SODIUM,PORCINE 2,500 UNIT in SODIUM CHLORIDE 0.9% 250 ML IRRIGATION PRN; -HEPARIN SODIUM,PORCINE 5,000 UNIT/ML 1 ML VIAL SQ ONE; -LACTATED RINGERS 1,000 ML IV SCH; -MIDAZOLAM 2 MG/2 ML VIAL IV PRN; +NITROGLYCERIN SL TABS 0.4 MG TAB SUBLINGUAL PRN; -ONDANSETRON 4 MG/2 ML VIAL IVP ONE; -SCOPOLAMINE 1.5MG/72HR PATCH TRANSDERM ONE; +SODIUM CHLORIDE 0.9% 1,000 ML in EMPTY BAG 1 BAG IV SCH; -ceFAZolin 2 GM in SODIUM CHLORIDE 0.9% 100 ML IVPB ONE
[2021-01-08 08:41] LABS: Basophils % (A) 0 %; Eosinophils # (A) 0.2 k/uL (0-0.7); Eosinophils % (A) 3 %; HCT 42.2 % (34.0-46.0); HGB 14.2 gm/dL (11.4-16.0); Lymphocytes # (A) 1.2 k/uL (1.0-4.8); Lymphocytes % (A) 17 %; MCH 30.6 pg (25.0-35.0); MCHC 33.5 g/dL (31.0-37.0); MCV 91.3 fL (80.0-100.0); Mean Platelet Volume 7.1; Monocytes # (A) 0.4 k/uL (0-1.0); Monocytes % (A) 6 %; Neutrophils # (A) 5.1 k/uL (1.3-7.7); Neutrophils % (A) 73 %; Platelet Count 305 k/uL (150-450); RBC 4.62 m/uL (3.80-5.40); RDW 12.6 % (11.5-15.5)
[2021-01-08 08:44] VITALS: TEMP 98.1
[2021-01-08 08:51] LABS: African American GFR (CKD) >90 (>60 ml/min/1.73 sqM); Anion Gap 6 mmol/L; Blood Urea Nitrogen 12 mg/dL (7-17); Calcium 9.7 mg/dL (8.4-10.2); Carbon Dioxide 23 mmol/L (22-30); Chloride 108 mmol/L (98-107); Glucose 158 mg/dL (74-99); Non-African American GFR(CKD) 86 (>60 ml/min/1.73 sqM); Potassium 4.4 mmol/L (3.5-5.1); Sodium 137 mmol/L (137-145)
[2021-01-08] MEDS ORDERED: LIDOCAINE 1% INJ 10MG/ML (20 ML MDV) ONE (08:51)
[2021-01-08] MEDS ORDERED: VERAPAMIL 2.5 MG/ML 2 ML AMP ONE (08:51)
[2021-01-08] MEDS ORDERED: fentaNYL (PF) 50 MCG/ML 2 ML AMP ONE (08:51)
[2021-01-08] MEDS ORDERED: fentaNYL (PF) 50 MCG/ML 2 ML AMP IVP ONE (09:36)
[2021-01-08] MEDS ORDERED: MIDAZOLAM 2 MG/2 ML VIAL IVP ONE (09:36)
[2021-01-08] MEDS ORDERED: HEPARIN SODIUM 1,000 UN/ML (10ML VL) ONE (09:38)
[2021-01-08] MEDS ORDERED: LIDOCAINE 1% INJ 10MG/ML (20 ML MDV) SQ ONE (09:38)
[2021-01-08] MEDS ORDERED: VERAPAMIL SYRINGE (5 MG/10 ML) INTRAARTER ONE (09:39)
[2021-01-08] MEDS ORDERED: HEPARIN SODIUM 1,000 UN/ML (10ML VL) IV ONE (09:43)
[2021-01-08] MEDS ORDERED: IOPAMIDOL-370 125ML BTL INJ ONE (09:56)
[2021-01-08 11:18] VITALS: RESP 16
[2021-01-08 14:01] VITALS: BP 126/83; PULSE 78
--- NOTE | 2021-01-08 18:09 | P.CARDCATH ---
Description of Procedure: PROCEDURES PERFORMED: Left heart catheterization, bilateral coronary angiography INDICATION: Abnormal stress test HISTORY: Patient is a pleasant 55 year old female with history of tobacco abuse, family history CAD who has been having some atypical chest pain and had a nuclear stress test with inducible anterior ischemia. LHC was recommended. CONSENT:I have discussed the risks, benefits and alternative therapies for the above-mentioned procedure and for both sedation/analgesia as well as necessary blood product administration, if indicated, as they pertain to this patient. The patient has indicated understanding and acceptance of the risks and procedures discussed. PROCEDURE: After the risks, benefits and alternatives of the above mentioned procedure explained in detail with the patient, informed consent was obtained. Patient was taken to the catheterization lab and prepped and draped in usual fashion. 1% lidocaine was used to anesthetize the right radial artery. A 6- Lebanese sheath was placed in the right radial artery using modified Seldinger technique. Left coronary angiography was performed with a 5-[place] JL 3.5 catheter and right coronary angiography was performed with a 5-[place] JR5 catheter in various views. A 5-[place] FR5 catheter was inserted into the left ventricle and pressure measurements were obtained. The right radial sheath was removed and a TR band was placed with hemostasis achieved. The patient tolerated the procedure well. Patient was transported back to the post catheterization holding area in stable condition. Conscious Sedation: Patient was monitored under the direct supervision of vision of myself for conscious sedation using Versed and fentanyl for a total duration of 11 minutes HEMODYNAMICS: Aortic: 124/70 LV: 128/6, LVEDP 10 SELECTIVE CORONARY ARTERIOGRAPHY: LEFT MAIN: The left main is a large caliber vessel which bifurcates into the LAD and circumflex. There is no significant stenosis. LEFT ANTERIOR DESCENDING CORONARY ARTERY: LAD is a large caliber vessel which becomes a somewhat smaller vessel at the apical LAD. There are mild luminal irregularities. LEFT CIRCUMFLEX CORONARY ARTERY: Left circumflex is a moderate caliber vessel with mild luminal irregularities RIGHT CORONARY ARTERY: The right coronary artery is a large caliber vessel which gives off a PDA and PLV branch and is the dominant vessel. There is 10- 20% mid RCA stenosis. FINAL IMPRESSION: 1. Mild coronary artery disease with only mild luminal irregularities as described above. 2. Normal left sided filling pressures PLAN: 1. Aggressive risk factor modification per most recent ACC/AHA guidelines. 2. Follow-up in the office in 1-2 weeks.
== END 2021-01-08 14:22 | disposition home or self-care (01) ==
LOC: CATHCVL 08:06
PROVIDERS: ATTEND Internal Medicine
DX: I25.10 Atherosclerotic heart disease of native coronary artery without angina pectoris (principal); I10 Essential (primary) hypertension; E78.5 Hyperlipidemia, unspecified; I73.9 Peripheral vascular disease, unspecified; F99 Mental disorder, not otherwise specified; F17.200 Nicotine dependence, unspecified, uncomplicated; Z82.49 Family history of ischemic heart disease and other diseases of the circulatory system; R94.39 Abnormal result of other cardiovascular function study; J44.9 Chronic obstructive pulmonary disease, unspecified; Z79.82 Long term (current) use of aspirin; Z79.51 Long term (current) use of inhaled steroids; Z79.899 Other long term (current) drug therapy
CPT/HCPCS: 93458; 80048; 85025; 87635; C1894; J2250; J2001; J3010; J1644; Q9967

== ENCOUNTER 2022-07-06 05:13 | Observation (INO) | payer OTHER ==
[2022-07-06 05:27] VITALS: TEMP 100.2
[2022-07-06] MEDS ORDERED: SODIUM CHLORIDE 0.9% 1,000 ML IV STA (05:42)
--- NOTE | 2022-07-06 06:12 | ED ---
General Adult HPI - General Chief complaint: Abdominal Pain Stated complaint: kidney stones Time Seen by Provider: 07/06/22 05:41 Source: patient Mode of arrival: ambulatory - History of Present Illness Initial comments: Dictation was produced using [employer] dictation software. please excuse any grammatical, word or spelling errors. Chief Complaint: 56-year-old female past medical history dyslipidemia, hypertension from out of presents to the ER for constitutional symptoms, abdominal pain and cough History of Present Illness: Is 56-year-old female she has multiple comorbidities. Prior to coming to the emergency department she states that she presented to [facility] twice within the last 48 hours. Patient states that she was diagnosed with an infection. She states she was not given any antibiotics. She states that she was not told her infection was. Complains of mild abdominal pain. Denies any chest pain. Denies any rash. No diarrhea. S he supposedly had a computed tomography scan recently at [facility] The ROS documented in this emergency department record has been reviewed and confirmed by me. Those systems with pertinent positive or negative responses have been documented in the HPI. All other systems are other negative and/or noncontributory. - Related Data Home Medications Medication Instructions Recorded Confirmed Albuterol Nebulized [Ventolin 2.5 mg INHALATION RT-Q4H PRN 09/01/17 01/05/21 Nebulized] Ergocalciferol (Vitamin D2) 50,000 unit PO MO 09/01/17 01/08/21 [Vitamin D2] PARoxetine HCL [Paxil] 30 mg PO BID 12/21/17 01/08/21 ARIPiprazole [Abilify] 20 mg PO DAILY 01/05/21 01/08/21 Aspirin 81 mg PO DAILY 01/05/21 01/08/21 Fluticasone Propionate 220 Mcg 2 puff INHALATION RT-BID 01/05/21 01/08/21 [Flovent 220 Mcg Inhaler (Mhu)] Omeprazole 20 mg PO DAILY 01/05/21 01/08/21 Potassium Chloride [Klor-Con 10 ER] 10 meq PO DAILY 01/05/21 01/05/21 Pravastatin Sodium [Pravachol] 20 mg PO DAILY 01/05/21 01/08/21 carBAMazepine [carBAMazepine ER] 100 mg PO Q12HR 01/05/21 01/08/21 cloNIDine HCL [Catapres] 0.1 mg PO BID 01/05/21 01/08/21 hydrOXYzine pamoate [Vistaril] 25 mg PO DAILY 01/05/21 01/05/21 lisinopriL 40 mg PO DAILY 01/05/21 01/08/21 HYDROcodone/APAP 7.5-325MG [[place] 1 tab PO Q4H PRN 01/08/21 01/08/21 7.5-325] Allergies Allergy/AdvReac Type Severity Reaction Status Date / Time No Known Allergies Allergy Verified 01/05/21 15:01 Review of Systems ROS Statement: Those systems with pertinent positive or pertinent negative responses have been documented in the HPI. ROS Other: All systems not noted in ROS Statement are negative. Past Medical History Past Medical History: Asthma, Fibromyalgia, GERD/Reflux, Hyperlipidemia, Hypertension, Liver Disease, Rheumatoid Arthritis (RA) Additional Past Medical History / Comment(s): djd, carpal tunnel, tendonitis, diverticulosis, heptitis C, herniated disc History of Any Multi-Drug Resistant Organisms: None Reported Past Surgical History: Cholecystectomy, Tubal Ligation Additional Past Surgical History / Comment(s): colonoscopy and egd, PAIN CLINIC PROCEDURES, Past Anesthesia/Blood Transfusion Reactions: No Reported Reaction Past Psychological History: ADD/ADHD, Anxiety, PTSD Smoking Status: Current every day smoker - Past Family History Mother Family Medical History: No Reported History General Exam - General Exam Comments Initial Comments: PHYSICAL EXAM: General Impression: Alert and oriented x3, not in acute distress HEENT: Normocephalic atraumatic, extra-ocular movements intact, pupils equal and reactive to light bilaterally, mucous membranes moist. Cardiovascular: Heart regular rate and rhythm Chest: Able to complete full sentences, no retractions, no tachypnea Abdomen: abdomen soft, non-distended, no organomegaly Musculoskeletal: Pulses present and equal in all extremities, no peripheral edema Motor: no focal deficits noted Neurological: CN II-XII grossly intact, no focal motor or sensory deficits noted Skin: Intact with no visualized rashes Psych: Normal affect and mood Course Vital Signs 07/06/22 05:24 Temperature 100.2 F H Pulse Rate 113 H Respiratory 22 Rate Blood Pressure 153/53 O2 Sat by Pulse 98 Oximetry Medical Decision Making - Medical Decision Making Limitations faxed over from [facility]. Faxed documentation was reviewed. Patient had nitrite positive urine from sample drawn yesterday. Metabolic panel was unremarkable. Mild leukocytosis of 13.6. Left kidney showed mild hydronephrosis based off of the UV ultrasound. No other abnormalities noted. She is given Rocephin and Protonix. She was diagnosed with urinary tract infection, given by ureteral stone and sepsis. Vital showed that patient had low-grade temperatures emergency room however was never hypotensive. Physician documentation was reviewed. Patient was there yesterday and the day before. She had left AGAINST MEDICAL ADVICE after the first visit. She had a computed tomography scan on the first visit that showed a 5 mm stone left UVJ. Documentation plan was for patient to be admitted however appears that she had left AGAINST MEDICAL ADVICE again. There is a history physical by the hospitalist chart. Was pt. sent in by a medical professional or institution (, PA, STRATEGIC PROCUREMENT MANAGER, urgent care, hospital, or alf...) When possible be specific @ -No Did you speak to anyone other than the patient for history (EMS, parent, family, police, friend...)? What history was obtained from this source @ -No Did you review nursing and triage notes (agree or disagree)? Why? @ -I reviewed and agree with nursing and triage notes Were old charts reviewed (outside hosp., previous admission, EMS record, old EKG, old radiological studies, urgent care reports/EKG's, alf records)? Report findings @ -The above documentation for my review of nursing hospital documentation from previous ER visit Differential Diagnosis (chest pain, altered mental status, abdominal pain women, abdominal pain men, vaginal bleeding, musculoskeletal, weakness, fever, dyspnea, syncope, headache, dizziness, GI bleed, back pain, seizure, CVA, palpatations, mental health)? @ -Differential Fever: Pneumonia, viral URI, endocarditis, myocarditis, pericarditis, otitis, sinusi tis, peritonsillar Abscess, retropharyngeal Abscess, epiglottitis, peritonitis, appendicitis, Mariah cystitis, diverticulitis, hepatitis, colitis, UTI, PID, TOA, pyelonephritis, prostatitis, epididymitis, meningitis, encephalitis, pulmonary embolism, CVA, thyroid storm, pancreatitis, adrenal crisis, cavernous sinus thrombosis, this is not meant to be an all-inclusive list. EKG interpreted by me (3pts min.). @ -None done X-rays interpreted by me (1pt min.). @ -None done CT interpreted by me (1pt min.). @ -None done U/S interpreted by me (1pt. min.). @ -None done What testing was considered but not performed or refused? (CT, X-rays, U/S, labs)? Why? @ -None What meds were considered but not given or refused? Why? @ -None Did you discuss the management of the patient with other professionals (professionals i.e. , PA, STRATEGIC PROCUREMENT MANAGER, lab, RT, psych nurse, psychologist social, customer relations coordinator, teacher, senior compliance officer, case aide)? Give summary @ -Case with Dr. Martin for admission.also discussed with Dr. Avila regarding patient's lab findings and clinical presentation Was smoking cessation discussed for >3mins.? @ -No Was critical care preformed (if so, how long)? @ -No Were there social determinants of health that impacted care today? How? (Homelessness, low income, unemployed, alcoholism, drug addiction, transportation, low edu. Level, literacy, decrease access to med. care, senior living, rehab)? @ -No Was there de-escalation of care discussed even if they declined (Discuss DNR or withdrawal of care, Hospice)? DNR status @ -No What co-morbidities impacted this encounter? (DM, HTN, Smoking, COPD, CAD, Cancer, CVA, ARF, Chemo, Hep., AIDS, mental health diagnosis, sleep apnea, morbid obesity)? @ -None Was patient admitted / discharged? Hospital course, mention meds given and route, prescriptions, significant lab abnormalities, going to OR and other pertinent info. @ -56-year-old female presents to the emergency department after leaving AGAINST MEDICAL ADVICE from [facility]. Clinical presentation after review of [facility] documentation was that she was to be admitted for UTI sepsis, complicated by left 6 mm UVJ stone rate. Patient did have low-grade temperature here. Chest x-ray shows no acute processes. Laboratory evaluation at our facility shows findings within acceptable limits. Patient given dose of ceftriaxone. Patient be admitted for further care. Undiagnosed new problem with uncertain prognosis? @ -No Drug Therapy requiring intensive monitoring for toxicity (Heparin, Nitro, Insulin, Cardizem)? @ -No Were any procedures done? @ -No Diagnosis/symptom? Acute, or Chronic, or Acute on Chronic? Uncomplicated (without systemic symptoms) or Complicated (systemic symptoms)? @ -1. Infected kidney stone Side effects of treatment? @ -No Exacerbation, Progression, or Severe Exacerbation? @ -No Poses a threat to life or bodily function? How? (Chest pain, [place], [place], pneumonia, PE, COPD, DKA, ARF, appy, cholecystitis, CVA, Diverticulitis, Homicidal, Suicidal, threat to staff... and all critical care pts) @ -yes - Lab Data Result diagrams: 07/06/22 05:49 07/06/22 05:49 Lab Results 07/06/22 07/06/22 07/06/22 Range/Units 05:49 05:49 06:09 WBC 12.8 H (3.8-10.6) k/uL RBC 4.33 (3.80-5.40) m/uL Hgb 13.1 (11.4-16.0) gm/dL Hct 38.6 (34.0-46.0) % MCV 89.2 (80.0-100.0) fL MCH 30.3 (25.0-35.0) pg MCHC 34.0 (31.0-37.0) g/dL RDW 12.9 (11.5-15.5) % Plt Count 183 (150-450) k/uL MPV 8.3 Neutrophils % 83 % Lymphocytes % 9 % Monocytes % 6 % Eosinophils % 0 % Basophils % 0 % Neutrophils # 10.6 H (1.3-7.7) k/uL Lymphocytes # 1.2 (1.0-4.8) k/uL Monocytes # 0.7 (0-1.0) k/uL Eosinophils # 0.0 (0-0.7) k/uL Basophils # 0.0 (0-0.2) k/uL Sodium 136 L (137-145) mmol/L Potassium 3.6 (3.5-5.1) mmol/L Chloride 104 (98-107) mmol/L Carbon Dioxide 22 (22-30) mmol/L Anion Gap 10 mmol/L BUN 13 (7-17) mg/dL Creatinine 0.97 (0.52-1.04) mg/dL Est GFR (CKD-EPI)AfAm 76 (>60 ml/min/1.73 sqM) Est GFR (CKD-EPI)NonAf 66 (>60 ml/min/1.73 sqM) Glucose 104 H (74-99) mg/dL Calcium 8.7 (8.4-10.2) mg/dL Total Bilirubin 0.5 (0.2-1.3) mg/dL AST 46 H (14-36) U/L ALT 46 H (4-34) U/L Alkaline Phosphatase 128 H (38-126) U/L Total Protein 6.3 (6.3-8.2) g/dL Albumin 3.5 (3.5-5.0) g/dL Urine Color Yellow Urine Appearance Clear (Clear) Urine pH 6.5 (5.0-8.0) Ur Specific [place] 1.014 (1.001-1.035) Urine Protein 1+ H (Negative) Urine Glucose (UA) Negative (Negative) Urine Ketones Negative (Negative) Urine Blood Large H (Negative) Urine Nitrite Negative (Negative) Urine Bilirubin Negative (Negative) Urine Urobilinogen <2.0 (<2.0) mg/dL Ur Leukocyte Esterase Negative (Negative) Urine RBC 44 H (0-5) /hpf Urine WBC 5 (0-5) /hpf Urine Bacteria Rare H (None) /hpf Urine Mucus Rare H (None) /hpf Disposition Clinical Impression: Sepsis secondary to UTI, Kidney stone Disposition: ADMITTED IP TO THIS [facility] Condition: Fair Referrals: Sammi Herrera MD [Primary Care Provider] - 1-2 days Decision Time: 07:30
[2022-07-06 06:31] LABS: Albumin 3.5 g/dL (3.5-5.0); Calcium 8.7 mg/dL (8.4-10.2); Potassium 3.6 mmol/L (3.5-5.1); Total Bilirubin 0.5 mg/dL (0.2-1.3); Total Protein 6.3 g/dL (6.3-8.2)
[2022-07-06] MEDS ORDERED: KETOROLAC 15 MG/ML 1 ML VIAL IVP STA (06:33)
--- NOTE | 2022-07-06 06:50 | XR ---
EXAMINATION TYPE: XR chest 1V portable DATE OF EXAM: 07/06/2022 COMPARISON: Chest x-ray February 05, 2018 HISTORY: Fever. TECHNIQUE: Single frontal supine view of the chest is obtained. FINDINGS: Low lung volumes with increased central markings. There is no suspicious peripheral focal air space opacity, pleural effusion, or pneumothorax seen. The cardiac silhouette size remains withi n normal limits. The osseous structures are intact. IMPRESSION: Increased central markings could reflect mild edema but favored product of poor inspirat ion and supine technique. No suspicious peripheral focal acute infiltrate.
[2022-07-06 06:53] LABS: Basophils % (A) 0 %; Eosinophils % (A) 0 %; HCT 38.6 % (34.0-46.0); HGB 13.1 gm/dL (11.4-16.0); Lymphocytes # (A) 1.2 k/uL (1.0-4.8); Lymphocytes % (A) 9 %; MCH 30.3 pg (25.0-35.0); MCV 89.2 fL (80.0-100.0); Mean Platelet Volume 8.3; Monocytes # (A) 0.7 k/uL (0-1.0); Monocytes % (A) 6 %; Neutrophils # (A) 10.6 k/uL (1.3-7.7); Neutrophils % (A) 83 %; Platelet Count 183 k/uL (150-450); RBC 4.33 m/uL (3.80-5.40); RDW 12.9 % (11.5-15.5); WBC 12.8 k/uL (3.8-10.6)
[2022-07-06] MEDS ORDERED: KETOROLAC 15 MG/ML 1 ML VIAL IVP PRN (07:24)
[2022-07-06] MEDS ORDERED: ACETAMINOPHEN TAB 325 MG TAB PO PRN (07:24)
[2022-07-06] MEDS ORDERED: NALOXONE 0.4 MG/ML 1 ML VIAL IV PRN (07:24)
[2022-07-06 07:26] LABS: Appearance,Urine Clear (Clear); Bacteria,Urine Rare /hpf; Bilirubin,Urine Negative (Negative); Blood,Urine Large (Negative); Color,Urine Yellow; Glucose,Urine (UA) Negative (Negative); Ketones,Urine Negative (Negative); Leukocyte Esterase,Urine Negative (Negative); Mucus,Urine Rare /hpf; Nitrite,Urine Negative (Negative); PH, Urine 6.5 (5.0-8.0); Protein,Urine 1+ (Negative); RBC,Urine 44 /hpf (0-5); Specific Gravity,Urine 1.014 (1.001-1.035); Urobilinogen,Urine <2.0 mg/dL (<2.0); WBC,Urine 5 /hpf (0-5)
[2022-07-06 07:51] VITALS: RESP 18
[2022-07-06] MEDS: cefTRIAXone IN SWFI 1,000 MG/10 ML SYRINGE IVP STA ×2 (09:03→10:41)
[2022-07-06] MEDS: SODIUM CHLORIDE 0.9% 1,000 ML IV SCH ×2 (09:04→10:43)
--- NOTE | 2022-07-06 09:35 | P.HPIM ---
History of Present Illness H&P Date: 07/06/22 PT left AMA Past Medical History Past Medical History: Asthma, Fibromyalgia, GERD/Reflux, Hyperlipidemia, Hypertension, Liver Disease, Rheumatoid Arthritis (RA) Additional Past Medical History / Comment(s): djd, carpal tunnel, tendonitis, diverticulosis, heptitis C, herniated disc History of Any Multi-Drug Resistant Organisms: None Reported Past Surgical History: Cholecystectomy, Tubal Ligation Additional Past Surgical History / Comment(s): colonoscopy and egd, PAIN CLINIC PROCEDURES, Past Anesthesia/Blood Transfusion Reactions: No Reported Reaction Past Psychological History: ADD/ADHD, Anxiety, PTSD Smoking Status: Current every day smoker - Past Family History Mother Family Medical History: No Reported History Medications and Allergies Home Medications Medication Instructions Recorded Confirmed Type Pravastatin Sodium [Pravachol] 20 mg PO DAILY 01/05/21 07/06/22 History cloNIDine HCL [Catapres] 0.1 mg PO BID 01/05/21 07/06/22 History lisinopriL 40 mg PO DAILY 01/05/21 07/06/22 History Buprenorphine/Naloxone 8Mg/2Mg 1 film SL TID 07/06/22 07/06/22 History [Suboxone 8-2Mg Film] Ergocalciferol (Vitamin D2) 1,250 mcg PO WEEKLY 07/06/22 07/06/22 History [Drisdol (50,000 Iu)] Fluticasone Propionate 110 Mcg 2 puff INHALATION RT-BID 07/06/22 07/06/22 History [Flovent 110 Mcg Inhaler] Ipratropium [place] [Atrovent Hfa] 2 puff INHALATION RT-QID PRN 07/06/22 07/06/22 History Loratadine [Claritin] 10 mg PO DAILY 07/06/22 07/06/22 History Metoprolol Succinate (ER) [Toprol 50 mg PO DAILY 07/06/22 07/06/22 History Xl] Omeprazole [PriLOSEC] 40 mg PO DAILY 07/06/22 07/06/22 History Potassium Chloride ER [K-Dur 20] 20 meq PO DAILY 07/06/22 07/06/22 History buPROPion XL [Wellbutrin XL] 150 mg PO DAILY 07/06/22 07/06/22 History rOPINIRole HCL [Requip] 1 - 2 mg PO HS 07/06/22 07/06/22 History Allergies Allergy/AdvReac Type Severity Reaction Status Date / Time No Known Allergies Allergy Verified 01/05/21 15:01 Physical Exam Vitals: Vital Signs Temp Pulse Resp BP Pulse Ox 07/06/22 07:47 111 H 18 166/93 94 L 07/06/22 05:24 100.2 F H 113 H 22 153/53 98 Intake and Output 07/05/22 07/06/22 07/06/22 22:59 06:59 14:59 Other: Weight 81.647 kg Results CBC & Chem 7: 07/06/22 05:49 07/06/22 05:49 Labs: Abnormal Lab Results - Last 24 Hours (Table) 07/06/22 07/06/22 07/06/22 Range/Units 05:49 05:49 06:09 WBC 12.8 H (3.8-10.6) k/uL Neutrophils # 10.6 H (1.3-7.7) k/uL Sodium 136 L (137-145) mmol/L Glucose 104 H (74-99) mg/dL AST 46 H (14-36) U/L ALT 46 H (4-34) U/L Alkaline Phosphatase 128 H (38-126) U/L Urine Protein 1+ H (Negative) Urine Blood Large H (Negative) Urine RBC 44 H (0-5) /hpf Urine Bacteria Rare H (None) /hpf Urine Mucus Rare H (None) /hpf
--- NOTE | 2022-07-06 09:36 | P.DS ---
Providers Date of admission: 07/06/22 07:24 Attending physician: Dennis Martin MD Consults: 07/06/22 07:21 Consult Physician Routine Consulting Provider: Anthony Avila Consult Reason/Comments: infected kidney stone Do you want consulting provider notified?: Yes Primary care physician: Stated None Hospital Course: Pt left AMA Plan - Discharge Summary New Discharge Prescriptions: No Action lisinopriL 40 mg PO DAILY Pravastatin Sodium [Pravachol] 20 mg PO DAILY cloNIDine HCL [Catapres] 0.1 mg PO BID Potassium Chloride ER [K-Dur 20] 20 meq PO DAILY Ipratropium [place] [Atrovent Hfa] 2 puff INHALATION RT-QID PRN PRN Reason: Shortness Of Breath Fluticasone Propionate 110 Mcg [Flovent 110 Mcg Inhaler] 2 puff INHALATION RT-BID Buprenorphine/Naloxone 8Mg/2Mg [Suboxone 8-2Mg Film] 1 film SL TID buPROPion XL [Wellbutrin XL] 150 mg PO DAILY Ergocalciferol (Vitamin D2) [Drisdol (50,000 Iu)] 1,250 mcg PO WEEKLY rOPINIRole HCL [Requip] 1 - 2 mg PO HS Omeprazole [PriLOSEC] 40 mg PO DAILY Metoprolol Succinate (ER) [Toprol Xl] 50 mg PO DAILY Loratadine [Claritin] 10 mg PO DAILY Discharge Medication List Pravastatin Sodium [Pravachol] 20 mg PO DAILY 01/05/21 [History] cloNIDine HCL [Catapres] 0.1 mg PO BID 01/05/21 [History] lisinopriL 40 mg PO DAILY 01/05/21 [History] Buprenorphine/Naloxone 8Mg/2Mg [Suboxone 8-2Mg Film] 1 film SL TID 07/06/22 [History] Ergocalciferol (Vitamin D2) [Drisdol (50,000 Iu)] 1,250 mcg PO WEEKLY 07/06/22 [History] Fluticasone Propionate 110 Mcg [Flovent 110 Mcg Inhaler] 2 puff INHALATION RT- BID 07/06/22 [History] Ipratropium [place] [Atrovent Hfa] 2 puff INHALATION RT-QID PRN 07/06/22 [History] Loratadine [Claritin] 10 mg PO DAILY 07/06/22 [History] Metoprolol Succinate (ER) [Toprol Xl] 50 mg PO DAILY 07/06/22 [History] Omeprazole [PriLOSEC] 40 mg PO DAILY 07/06/22 [History] Potassium Chloride ER [K-Dur 20] 20 meq PO DAILY 07/06/22 [History] buPROPion XL [Wellbutrin XL] 150 mg PO DAILY 07/06/22 [History] rOPINIRole HCL [Requip] 1 - 2 mg PO HS 07/06/22 [History] Follow up Appointment(s)/Referral(s): Sammi Herrera MD [STAFF PHYSICIAN] - 1-2 days Discharge Disposition: Left Against Medical Advice
[2022-07-06 14:14] VITALS: BP 165/89; PULSE 104
== END 2022-07-06 15:24 | disposition home or self-care (01) ==
LOC: EC 05:13 → OBSVTOIN 07:24 → INTOOBSV 07:24 → 5NMEDONC 07:24 → UNDODISIN 09:13 → 5NMEDONC 14:52 → UNDODISIN 15:24
PROVIDERS: ADMIT Family Medicine; ATTEND Family Medicine
DX: N13.6 Pyonephrosis (principal); E78.5 Hyperlipidemia, unspecified; M79.7 Fibromyalgia; K21.9 Gastro-esophageal reflux disease without esophagitis; M06.9 Rheumatoid arthritis, unspecified; B19.20 Unspecified viral hepatitis C without hepatic coma; K57.90 Diverticulosis of intestine, part unspecified, without perforation or abscess without bleeding; K76.9 Liver disease, unspecified; F41.9 Anxiety disorder, unspecified; F43.10 Post-traumatic stress disorder, unspecified; F17.200 Nicotine dependence, unspecified, uncomplicated; I10 Essential (primary) hypertension; Z79.899 Other long term (current) drug therapy; Z79.82 Long term (current) use of aspirin; Z98.51 Tubal ligation status; Z90.49 Acquired absence of other specified parts of digestive tract; Z53.29 Procedure and treatment not carried out because of patient's decision for other reasons; Z20.822 Contact with and (suspected) exposure to COVID-19
CPT/HCPCS: 96374; 96361; 99285; 36415; 80053; 85025; 81001; 87636; 71045; G0378; J0696; 96360